=== PATIENT | female | born 1950 | race Caucasian/White ===

== ENCOUNTER 2018-07-12 11:25 | Emergency (ER) | payer SELFPAY ==
[~2018-07-12] VITALS: Ht 162.6 cm; Wt 80.3 kg
[2018-07-12 12:29] LABS: GLUCOSE,POINT OF CARE 224 MG/DL (70-110)
[2018-07-12 12:58] LABS: BASOPHILS % (AUTO) 0.4 % (0.0-2.0); CREATININE 0.97 mg/dL (0.60-1.30); EOSINOPHILS % (AUTO) 0.1 % (1.0-6.0); HEMATOCRIT 41.6 % (36-46); HEMOGLOBIN 13.7 g/dL (12.0-16.0); LYMPHOCYTES # (AUTO) 0.8 K/uL (1.0-4.8); LYMPHOCYTES % (AUTO) 4.7 % (22.0-44.0); MEAN CORPUSCULAR HEMOGLOBIN 28.4 pg (26.0-34.0); MEAN CORPUSCULAR VOLUME 86 fL (80-100); MONOCYTES # (AUTO) 0.7 K/uL (0.1-1.0); MONOCYTES % (AUTO) 3.7 % (2.0-9.0); NEUTROPHILS # (AUTO) 16.3 K/uL (1.8-7.7); PLATELET COUNT (AUTO) 355 K/uL (150-450); POTASSIUM 3.2 mmol/L (3.5-5.1); RED BLOOD CELL COUNT(AUTO) 4.83 MIL/uL (4.00-5.20); RED CELL DISTRIBUTION WIDTH 13.6 % (11.5-14.5)
[2018-07-12 13:03] LABS: NEUTROPHILS % (AUTO) 91.1 % (40.0-70.0)
[2018-07-12] MEDS ORDERED: NAPR-58 PO (13:13)
[2018-07-12] MEDS ORDERED: UNKNOWN BP MED PO (13:13)
[2018-07-12] MEDS ORDERED: IBUP-2071 PO (13:13)
[2018-07-12] MEDS ORDERED: CLIN300C3 PO (13:13)
[2018-07-12] MEDS ORDERED: LevETIRAcetam 1,000 MG in DEXTROSE 5%-WATER 100 ML IV ONE (14:15)
[2018-07-12 14:45] VITALS: BP 153/85
== END 2018-07-12 15:23 | disposition home or self-care (01) ==
LOC: EMS 11:27 → EDBD 11:27 → EMS 15:23
DX: G40.909 Epilepsy, unspecified, not intractable, without status epilepticus (principal); E11.9 Type 2 diabetes mellitus without complications; I10 Essential (primary) hypertension; E78.00 Pure hypercholesterolemia, unspecified
CPT/HCPCS: 36415; 70450; 80048; 82962; 85025; 93005; 96365; 99285; J0712; J7060